=== PATIENT | male | born 1965 | race Caucasian/White ===

== ENCOUNTER → 2016-10-21 | Outpatient (CLI) | payer SELFPAY ==
[~2016-10-21] MED LIST: HUMALOG100 UNIT/1 SUB-Q; LEVOTHROID (S200 MCG PO; NAPROSYN500 MG PO; TOUJEO SOL300 UNIT/1 SUB-Q
== END | disposition disaster alternative care site (69) ==
LOC: GAMB 11:36
DX: R45.6 Violent behavior (principal); R73.9 Hyperglycemia, unspecified; Z79.4 Long term (current) use of insulin; Z79.899 Other long term (current) drug therapy
CPT/HCPCS: A0425; A0429

== ENCOUNTER → 2016-10-24 | Outpatient (CLI) | payer SELFPAY | END | disposition disaster alternative care site (69) | LOC: GRAD 11:25 | DX: S60.222A Contusion of left hand, initial encounter (principal); M79.642 Pain in left hand ==